=== PATIENT | female | born 1960 | race Caucasian/White ===

== ENCOUNTER 2023-02-11 17:38 | Emergency (ER) | payer MEDICAID ==
[~2023-02-11] VITALS: Ht 167.6 cm; Wt 81.6 kg
[2023-02-11 18:19] VITALS: BP_SYST 125; PULSE 74; RESP 18; TEMP 97.5; O2SAT 96
== END 2023-02-11 22:12 | disposition left against medical advice (07) ==
LOC: SED 17:38
DX: M79.621 Pain in right upper arm (principal); M79.661 Pain in right lower leg; Z53.21 Procedure and treatment not carried out due to patient leaving prior to being seen by health care provider
CPT/HCPCS: 99281

== ENCOUNTER 2023-12-29 07:56 | Day surgery (SDC) | payer MEDICAID, OTHER ==
[~2023-12-29] VITALS: Ht 165.1 cm; Wt 77.1 kg
[2023-12-29] MEDS ORDERED: MIDAZOLAM HCL 5 MG/5 ML VIAL ONE ×2 (09:05→09:27)
[2023-12-29] MEDS ORDERED: MEPERIDINE 100 MG INJ. 100 MG/ML VIAL ONE (09:05)
[2023-12-29 14:57] VITALS: BP_SYST 121; PULSE 65; RESP 18; TEMP 98.3; O2SAT 98
== END 2023-12-29 11:10 | disposition home or self-care (01) ==
LOC: SDS 07:56 → SMU 07:57 → SDS 11:10
PROVIDERS: ATTEND Internal Medicine Gastroenterology
DX: Z12.11 Encounter for screening for malignant neoplasm of colon (principal); D12.8 Benign neoplasm of rectum; K29.50 Unspecified chronic gastritis without bleeding; K21.9 Gastro-esophageal reflux disease without esophagitis; R13.10 Dysphagia, unspecified; K64.8 Other hemorrhoids; I10 Essential (primary) hypertension; J45.909 Unspecified asthma, uncomplicated; M79.7 Fibromyalgia; Z90.710 Acquired absence of both cervix and uterus; Z90.89 Acquired absence of other organs; Z86.010 Personal history of colon polyps
CPT/HCPCS: 45380; 43239; 87081; 36415; 88305; 88312; 88313; 99153; 99152; G0378; J2250; J2175